=== PATIENT | female | born 1940 | race Caucasian/White ===

== ENCOUNTER 2018-04-03 15:53 | Inpatient (IN) | payer OTHER ==
[~2018-04-03] VITALS: Ht 170.2 cm; Wt 86.2 kg
[2018-04-03 15:53] VITALS: BP 169/102
[~2018-04-03 15:53] MED LIST: ACETAMINOPHEN; ACETAMINOPHEN325 M1 PO; ALBUTEROL2.5 MG/31 IH; ALLEGRA ALLERG180 MG PO; ALLEGRA180 MG PO; B12 INJECTION; BACTRIM 400-801 EACH PO; CHLORDIAZEPOXID25 M1 PO; COMBIVENT IN; EFFEXOR XR37.5 MG PO; FLAGYL500 MG PO; FLOVENT HFA 1110 MCG IH; GLYCOLAX POWDER17 GM PO; ICAPS TABLET1 EACH PO; KENALOG-4040 MG/ML IJ; LACRILUBE OPHTHALMIC; MUCINEX D TABL1 EACH PO; NORCO 5-325 TA1 EACH PO; OYSTER SHELL+D1 EAC1 PO; PHENOBARBITAL30 MG PO; PRAVACHOL40 MG PO; PREMARIN2.5 MG PO; PRENATAL 1 PLU1 EACH PO; PRENATAL FORMU1 EAC3 PO; PRILOSEC40 MG PO; PROZAC 20 MG20 M1 PO; SILVADENE20 GM; SINGULAIR 10 MG10 M1 PO; VENTOLIN HFA INH8 GM IH; VICODIN 5-5001 EACH PO
[2018-04-03] MEDS ORDERED: FOSAMAX 70 MG T70 MG PO (16:15)
[2018-04-03] MEDS ORDERED: NOLVADEX20 MG PO (16:15)
[2018-04-03] MEDS ORDERED: FLONASE 0.05%50 MCG NASAL (16:16)
[2018-04-03 16:42] LABS: ABSOLUTE LYMPHOCYTES 1.4 thou/uL (0.8-5.3); ABSOLUTE NEUTROPHILS 9.9 thou/uL (1.6-8.1); BASOPHILS 0.4 %; EOSINOPHILS 0.3 %; HEMATOCRIT 42.2 % (37.0-47.0); HEMOGLOBIN 13.9 gm/dL (12.0-15.0); LYMPHOCYTES 11.3 %; MCH 30.7 pg (26.0-34.0); MCHC 32.9 g/dL (28.0-37.0); MCV 93.4 fL (80.0-100.0); MONOCYTES 8.3 %; MPV 7.7 fl. (7.2-11.1); NUCLEATED RBCS 0 /100WBC; PLATELET COUNT* 251 thou/uL (150-400); POLYS 79.7 %; RBC 4.52 mil/uL (4.20-5.00); RDW-CV 13.4 % (10.5-14.5); WBC 12.3 thou/uL (4.0-11.0)
[2018-04-03 16:53] LABS: ANION GAP 6 mmol/L (7-16); BUN 15 mg/dL (7-18); CALCIUM 9.3 mg/dL (8.5-10.1); CHLORIDE 102 mmol/L (98-107); CO2 32 mmol/L (21-32); CREATININE 0.9 mg/dL (0.6-1.3); GLUCOSE 103 mg/dL (70-99); POTASSIUM 3.8 mmol/L (3.5-5.1); SODIUM 140 mmol/L (136-145)
[2018-04-03 16:59] LABS: ALBUMIN 3.5 g/dL (3.4-5.0); ALKALINE PHOSPHATASE 60 U/L (46-116); CHOLESTEROL 157 mg/dL (<200); HDL CHOLESTEROL 56 mg/dL (>40); LDL CHOLESTEROL 92 mg/dL (<100); SERUM ASSESSMENT CLEAR; SGOT 22 U/L (15-37); SGPT 25 U/L (30-65); TC:HDL 2.8 Ratio (Not establshd); TOTAL BILIRUBIN 0.3 mg/dL (<0.1-1.0); TOTAL PROTEIN 6.8 g/dL (6.4-8.2); TRIGLYCERIDE 47 mg/dL (<150); TROPONIN-I LEVEL <0.06 ng/mL (<0.06); VLDL 9 mg/dL (<40)
[2018-04-03 17:45] LABS: ESR (SEDRATE) 5 mm/hr (0-30)
[2018-04-03 20:57] VITALS: BP 154/71
[2018-04-03 21:32] VITALS: BP 143/60
[2018-04-03] MEDS ORDERED: PRILOSEC 20 MG20 MG PO (23:10)
[2018-04-03 23:47] LABS: URINE BILIRUBIN NEGATIVE (Negative); URINE BLOOD TRACE (Negative); URINE CLARITY SL CLOUDY; URINE COLOR YELLOW; URINE GLUCOSE-RANDOM NEGATIVE (Negative); URINE KETONES NEGATIVE (Negative); URINE LEUKOCYTES-REFLEX 1+ (Negative); URINE NITRITE-REFLEX NEGATIVE (Negative); URINE PROTEIN NEGATIVE (Negative); URINE SPECIFIC GRAVITY <= 1.005 (1.005-1.030); URINE UROBILINOGEN 0.2 E.U./dl (0.2-1.0)
[2018-04-03 23:54] LABS: SQUAMOUS 0-3 Few /LPF (0-3)
[2018-04-03 23:55] LABS: BACTERIA-REFLEX >30 Many /HPF (None Seen); CASTS None Seen /LPF (None Seen); CRYSTALS None Seen /LPF (None Seen); MUCUS 0-3 Light strn/LPF (None Seen); URINE WBC-REFLEX >25 Many /HPF (0-5); WBC CLUMPS Moderate (None Seen)
[2018-04-04 04:00] VITALS: BP 136/60
[2018-04-04 04:59] LABS: ALBUMIN 3.1 g/dL (3.4-5.0); ALKALINE PHOSPHATASE 53 U/L (46-116); ANION GAP 6 mmol/L (7-16); BUN 16 mg/dL (7-18); CALCIUM 8.6 mg/dL (8.5-10.1); CHLORIDE 104 mmol/L (98-107); CHOLESTEROL 141 mg/dL (<200); CO2 30 mmol/L (21-32); GLUCOSE 111 mg/dL (70-99); HDL CHOLESTEROL 53 mg/dL (>40); LDL CHOLESTEROL 79 mg/dL (<100); SGOT 21 U/L (15-37); SGPT 24 U/L (30-65); SODIUM 140 mmol/L (136-145); TC:HDL 2.7 Ratio (Not establshd); TOTAL BILIRUBIN 0.3 mg/dL (<0.1-1.0); TOTAL PROTEIN 5.9 g/dL (6.4-8.2); TRIGLYCERIDE 45 mg/dL (<150); VLDL 9 mg/dL (<40)
[2018-04-04 05:09] LABS: SERUM ASSESSMENT CLEAR
[2018-04-04 08:00] VITALS: BP 126/60
[2018-04-04 12:00] VITALS: BP 135/74
[2018-04-04 16:00] VITALS: BP 123/65
[2018-04-04 19:50] VITALS: BP 121/62
[2018-04-05] VITALS: BP 119/57
[2018-04-05 02:05] LABS: GLYCOHEMOGLOBIN (HGB A1C) 5.3 % (4.8-5.6)
[2018-04-05 02:05] LABS: GLYCOHEMOGLOBIN (HGB A1C) 5.3 % (4.8-5.6)
[2018-04-05 04:00] VITALS: BP 111/69
[2018-04-05 04:22] LABS: ABSOLUTE BASOPHILS 0.1 thou/uL (0.0-0.2); ABSOLUTE LYMPHOCYTES 2.2 thou/uL (0.8-5.3); ABSOLUTE MONOCYTES 1.2 thou/uL (0.0-1.2); ABSOLUTE NEUTROPHILS 9.1 thou/uL (1.6-8.1); BASOPHILS 0.4 %; EOSINOPHILS 0.3 %; HEMATOCRIT 36.8 % (37.0-47.0); HEMOGLOBIN 12.3 gm/dL (12.0-15.0); LYMPHOCYTES 17.5 %; MCH 31.1 pg (26.0-34.0); MCHC 33.3 g/dL (28.0-37.0); MCV 93.3 fL (80.0-100.0); MONOCYTES 9.6 %; MPV 7.7 fl. (7.2-11.1); NUCLEATED RBCS 0 /100WBC; PLATELET COUNT* 234 thou/uL (150-400); POLYS 72.2 %; RBC 3.94 mil/uL (4.20-5.00); RDW-CV 13.7 % (10.5-14.5); WBC 12.6 thou/uL (4.0-11.0)
[2018-04-05 04:42] LABS: CALCIUM 7.5 mg/dL (8.5-10.1); POTASSIUM 4.1 mmol/L (3.5-5.1)
[2018-04-05 12:00] VITALS: BP 118/64
[2018-04-05 14:20] LABS: BF RBC 228890 /mm3; TOTAL CELL COUNT 1049 /mm3
[2018-04-05 14:22] LABS: CLARITY CLOUDY; COLOR RED; TOTAL VOLUME 24 ml
[2018-04-05 14:27] LABS: BF LYMPHOCYTES 20 %; BF MONOCYTES 20 %; BF POLYS 60 %
[2018-04-05 14:28] LABS: SOURCE LEFT KNEE
--- NOTE | 2018-04-05 15:33 | EKG ---
[place] [address] ELECTROCARDIOGRAM REPORT Name: CYNTHIA FELDMAN Room: [address] ADM IN .R.#: [id number] Admission: 04/03/18 Attend Phys: Jeremie Fernandez MD Discharge: Date of : 42 Report #: [id number] THIS REPORT FOR: //name// [facility] ED Test Date: 2018-04-03 Test Time: 16:49:30 Pat Name: CYNTHIA FELDMAN Department: Room: [facility] Gender: F Spanisher: Dakota MARQUES : 1940 Requested By: Remedios Ghosh Order Number: [id number] MD: Harjit Raman Measurements Intervals [place] Rate: 73 P: -39 ME: 157 QRS: -16 QRSD: 99 T: 42 QT: 410 QTc: 452 Interpretive Statements Sinus rhythm Borderline left axis deviation Compared to ECG 05/20/2013 09:22:56 No significant changes Electronically Signed On 04-05-2018 15:33:26 IP NETWORK ARCHITECT by Harjit Raman [email or web address] <ELECTRONICALLY SIGNED> By: Harjit Raman MD, [facility] 04/05/18 1533 1649 [id number] Harjit Raman MD, [facility] /EPI
[2018-04-05 16:00] VITALS: BP 127/78
[2018-04-05 20:00] VITALS: BP 150/70
[2018-04-06 00:11] VITALS: BP 148/60
[2018-04-06 04:00] VITALS: BP 124/73
[2018-04-06 04:54] LABS: ABSOLUTE EOSINOPHILS 0.1 thou/uL (0.0-0.7); ABSOLUTE LYMPHOCYTES 2.2 thou/uL (0.8-5.3); ABSOLUTE MONOCYTES 1.3 thou/uL (0.0-1.2); ABSOLUTE NEUTROPHILS 8.4 thou/uL (1.6-8.1); BASOPHILS 0.3 %; EOSINOPHILS 0.8 %; HEMATOCRIT 34.7 % (37.0-47.0); HEMOGLOBIN 11.6 gm/dL (12.0-15.0); LYMPHOCYTES 18.3 %; MCH 31.1 pg (26.0-34.0); MCHC 33.4 g/dL (28.0-37.0); MCV 93.2 fL (80.0-100.0); MONOCYTES 10.5 %; MPV 7.8 fl. (7.2-11.1); NUCLEATED RBCS 0 /100WBC; PLATELET COUNT* 226 thou/uL (150-400); POLYS 70.1 %; RBC 3.72 mil/uL (4.20-5.00); RDW-CV 13.4 % (10.5-14.5); WBC 12.1 thou/uL (4.0-11.0)
[2018-04-06 05:05] LABS: ALBUMIN 2.4 g/dL (3.4-5.0); CALCIUM 7.8 mg/dL (8.5-10.1); CREATININE 0.9 mg/dL (0.6-1.3); TOTAL BILIRUBIN 0.2 mg/dL (<0.1-1.0)
[2018-04-06 07:45] VITALS: BP 127/63
[2018-04-06 10:11] LABS: BODY FLUID PROTEIN 3.2 g/dL (())
[2018-04-06 12:00] VITALS: BP 132/76
[2018-04-06 15:30] VITALS: BP 151/86
[2018-04-06 20:24] VITALS: BP 127/49
[2018-04-07 00:04] VITALS: BP 118/62
[2018-04-07 04:00] VITALS: BP 123/53
--- NOTE | 2018-04-07 07:57 | CON ---
[address] [address] CONSULTATION Name: CYNTHIA FELDMAN Room: [address] IN M.R.#: [id number] Admission: 04/03/18 Attend Phys: Jeremie Fernandez MD Discharge: Date of : 42 Report #: [id number] THIS REPORT FOR: //name// CC: Jeremie Menendez DATE OF SERVICE: 04/06/2018 INFECTIOUS DISEASE CONSULTATION ATTENDING PHYSICIAN: Jeremie Fernandez M.D. REASON FOR EVALUATION: Complicated urinary tract infection and possible left knee septic arthritis. HISTORY OF PRESENT ILLNESS: Chart reviewed, the patient examined. This is a 78-year-old with history of breast cancer, who was admitted with a subacute onset of left lower extremity pain. She noted onset in the evening, but she was still able to ambulate; the next morning, she was not, with primarily limited left lower extremity, particularly around the knee. There was pain associated with it. She has had no fevers or chills. Appetite has been good. No pulmonary or gastrointestinal-related complaints. She was evaluated in the Emergency Room to exclude stroke, which seems to be not present. Chest x-ray was otherwise unremarkable. Sed rate was 1. She underwent spinal MRI evaluation that was chronic, without acute changes. Left knee showed moderate joint effusion. She did undergo aspiration, which was essentially a bloody tap, awaiting results. Urine did show marked pyuria. Cultures pending for both the urine and the knee. She was empirically started on ceftriaxone. She is not encephalopathic. ALLERGIES: ASPIRIN AND DOXYCYCLINE. CURRENT MEDICATIONS: Include venlafaxine, montelukast, atorvastatin, enoxaparin, phenobarbital, fluticasone, pantoprazole, ceftriaxone, hydralazine, aspirin, albuterol, p.r.n. analgesics and antiemetics. PAST MEDICAL HISTORY: Breast cancer with bilateral mastectomies and knee replacement on the left side. SOCIAL HISTORY: She smokes a pack per day; last 40 years of tobacco. No illicit drug use. No ethanol. FAMILY HISTORY: Noncontributory. REVIEW OF SYSTEMS: Otherwise, negative 10-point review of systems, with the exception of as noted in the [place] [address] CONSULTATION Name: CYNTHIA FELDMAN Room: [address]#: [id number] Admission: 04/03/18 Attend Phys: Jeremie Fernandez MD Discharge: Date of : 42 Report #: [id number] PHYSICAL EXAMINATION: GENERAL: She is alert, cooperative. She is sitting in the chair. She appears mildly undernourished, pson-sf-idbwjhqn distress. VITAL SIGNS: T-max overnight 100.4, more recently 99; pulse 109; respirations 18 and blood pressure 124/73. SKIN: Warm, dry. No rashes. HEENT: Otherwise, unremarkable. Extraocular muscles intact. There are no oral lesions. NECK: Supple. LUNGS: Somewhat diminished; otherwise, clear breath sounds. HEART: Regular. I do not appreciate a murmur. ABDOMEN: Soft, nontender and nondistended. EXTREMITIES: Left lower extremity shows a longitudinal-oriented anterior well-healed incision with scarring. There is really not a significant amount of superficial inflammation noted. There is somewhat decreased range of motion. I do not appreciate a significant effusion. GENITOURINARY: Deferred. RECTAL: Deferred. LABORATORY DATA: Blood cultures sterile thus far. Left knee, protein 3.2, glucose of 125. Cell count is red and cloudy with a total white count of 1049, red count of 228,890, 60% polys, 20% monocytes and 20% lymphs. Culture is pending. A Gram stain with rare white cells, no organisms seen. Sed rate of 5. MRI of the head showed some chronic changes with atrophy, nothing acute. Lactic acid at 1.6. ASSESSMENT AND PLAN: Complicated urinary tract infection. I suspect it is a complication of whatever triggered this left lower extremity weakness and perhaps knee pain, but that history and evaluation on cell count, perhaps hemarthrosis associated with the artificial knee, I think the evidence for septic joint seems lacking. Continue the ceftriaxone. Await culture results. At this point, I do not think there is anything surgically. We will see how she does with physical therapy. Discussed with Dr. Fernandez. <ELECTRONICALLY SIGNED> By: Jason Nunez MD 04/07/18 0757 1121 [id number] Nunez MD /nt
[2018-04-07 08:07] VITALS: BP 134/78
[2018-04-07 09:09] LABS: ABSOLUTE BASOPHILS 0.1 thou/uL (0.0-0.2); ABSOLUTE EOSINOPHILS 0.2 thou/uL (0.0-0.7); ABSOLUTE MONOCYTES 1.1 thou/uL (0.0-1.2); ABSOLUTE NEUTROPHILS 6.8 thou/uL (1.6-8.1); EOSINOPHILS 1.7 %; HEMATOCRIT 35.4 % (37.0-47.0); HEMOGLOBIN 11.9 gm/dL (12.0-15.0); LYMPHOCYTES 19.8 %; MCH 31.6 pg (26.0-34.0); MCHC 33.5 g/dL (28.0-37.0); MCV 94.4 fL (80.0-100.0); MONOCYTES 10.4 %; MPV 8.4 fl. (7.2-11.1); NUCLEATED RBCS 0 /100WBC; PLATELET COUNT* 242 thou/uL (150-400); POLYS 67.1 %; RBC 3.75 mil/uL (4.20-5.00); RDW-CV 13.6 % (10.5-14.5); WBC 10.2 thou/uL (4.0-11.0)
[2018-04-07 09:18] LABS: ALBUMIN 2.5 g/dL (3.4-5.0); CALCIUM 7.9 mg/dL (8.5-10.1); CREATININE 0.9 mg/dL (0.6-1.3); POTASSIUM 4.6 mmol/L (3.5-5.1); TOTAL BILIRUBIN 0.2 mg/dL (<0.1-1.0); TOTAL PROTEIN 5.2 g/dL (6.4-8.2)
[2018-04-07 14:02] VITALS: BP 134/78
[2018-04-07] MEDS ORDERED: CEFUROXIME500 MG PO (14:05)
[2018-04-07] MEDS ORDERED: ASPIR 8181 MG PO (14:06)
[2018-04-08 07:45] LABS: SOURCE KNEE JOINT
--- NOTE | 2018-04-08 22:31 | CON ---
[address] [address] CONSULTATION Name: CYNTHIA FELDMAN Room: [address] IN ..#: [id number] Admission: 04/03/18 Attend Phys: Jeremie Fernandez MD Discharge: 04/07/18 Date of : 42 Report #: [id number] THIS REPORT FOR: //name// CC: Jeremie Menendez DATE OF SERVICE: 04/05/2018 CHIEF COMPLAINT: Left lower extremity weakness. HISTORY OF PRESENT ILLNESS: The patient is a 78-year-old lady with a medical history of left lower extremity weakness, had difficulty bearing weight and had instability. The patient is uncertain if she had a fall. Did have previous knee replacement done. She denies any significant trauma. The patient states there is no pain in the knee; however, it is weak on the left side that last for most of the day, can get to a 2/10 in her hip and low back. The patient has tried walker and cane without significant improvement. Previous history of stroke as well as UTI in the past. We are consulted for evaluation of her left knee effusion. MEDICAL HISTORY: Prior stroke, fall, left wrist radius fracture in the past. Right patellar fracture in the past. Knee replacement on the left. ALLERGIES: DOXYCYCLINE AND ASPIRIN. MEDICATIONS: Listed in H and P. PAST SURGICAL HISTORY: Double mastectomy, knee replacement on the left, plate and screws in the right. FAMILY HISTORY: Noncontributory. SOCIAL HISTORY: Tobacco use, everyday smoker, 1 pack for over 40 years. Denies any alcohol or illicit drugs. REVIEW OF SYSTEMS: A 12-system review of systems is evaluated and negative except for pertinent positives in the HPI. IMAGING STUDIES: CT of the head with stroke protocol, she has atrophic changes. No acute process. X-ray of the chest negative. X-ray of the left knee shows prior total knee without evidence of loosening. Mild effusion. No evidence of acute process. LABORATORY STUDIES: Show white count of 12.6, sed rate of 1. Urinalysis reveals positive leukocyte esterase, positive red blood cells, [place] [address] CONSULTATION Name: CYNTHIA FELDMAN Adrien Room: [address]#: [id number] Admission: 04/03/18 Attend Phys: Jeremie Fernandez MD Discharge: 04/07/18 Date of : 42 Report #: [id number] greater than 25 white blood cells with moderate clumps. Urine bacteria greater than 30. Glucose 103, potassium 3.8, chloride 102. Sodium 140. PHYSICAL EXAMINATION: VITAL SIGNS: Temperature 99.3, pulse 99, respirations 20. GENERAL: Well-developed, well-nourished, pleasant 78-year-old female in no distress. HEENT: Normocephalic, atraumatic. Pupils equal, round and reactive. Nose clear with moist mucous membranes. Mouth patent. Moist mucous membranes. No evidence of lesions. NECK: Supple, no JVD, no bruit. CARDIOVASCULAR: Regular rate and rhythm. Capillary refill normal. Pulses normal bilaterally. LUNGS: Clear to auscultation with no wheezes or rales. No crackles. ABDOMEN: Soft, positive bowel sounds, no masses. EXTREMITIES: No clubbing or cyanosis. Peripheral pulses normal. SKIN: Normal turgor and cap refill. PSYCHIATRIC: Appropriate mood and affect. NEUROLOGICAL: Moving all extremities, full range of motion, no speech issues. No facial droop. MUSCULOSKELETAL: The patient's left extremity is evaluated which does show flexion and extension of the knee with full range of motion. Mild effusion is noted in the left knee; however, no evidence of erythema, infection or cellulitis. Calves are soft and nontender. The patient has 4/5 strength with movement of the left lower extremity. ASSESSMENT: 1. Left knee effusion. 2. Possible urinary tract infection. 3. History of stroke. 4. History of left total knee. PLAN: At this time, the patient is discussed and verbally consented for aspiration of her knee. She elected to proceed. It is sterilely prepped with chlorhexidine. An 18-gauge needle is then introduced through the lateral side to aspirate the knee. Approximately, 50 mL of dark red blood was removed from the knee without evidence of purulence, no evidence of infection in the aspirate. This was sent for culture and Gram stain in sterile technique. This was then dressed with a compression bandage. The patient is discussed to continue range of motion, physical therapy as well as compressive wrap to minimize any excess bleeding within the knee, is encouraged to continue full range of motion and try to resume strength and walking as able with other workups pending. At this time, no signs of infection. We will await cultures. However, at this time, nonsurgical intervention is discussed with the patient in detail. The patient is comfortable with this and verbalized understanding. Questions were answered. [address] [address] CONSULTATION Name: CYNTHIA FELDMAN Room: [address] IN M.R.#: [id number] Admission: 04/03/18 Attend Phys: Jeremie Fernandez MD Discharge: 04/07/18 Date of : 42 Report #: [id number] Thank you very much for this consultation. <ELECTRONICALLY SIGNED> By: Riki Cooley II, DO 04/08/18 2231 0852 2014iRki Cooley II, DO /nt
--- NOTE | 2018-04-10 10:58 | CON ---
[address] [address] CONSULTATION Name: CYNTHIA FELDMAN Adrien Room: [address] IN .R.#: [id number] Admission: 04/03/18 Attend Phys: Jeremie Fernandez MD Discharge: 04/07/18 Date of : 42 Report #: [id number] THIS REPORT FOR: //name// CC: Jeremie Menendez DATE OF SERVICE: 04/04/2018 HISTORY OF PRESENT ILLNESS: This is a 78-year-old female patient who was evaluated by me for the left lower extremity weakness. The patient's symptom had started the night before admission. It persisted throughout the day. They were about the same. She does not know if it was an acute onset, but it is going on for the last few days only and she continued to be weak in the left side. REVIEW OF SYSTEMS: Indicates that she had weakness on the left side. She had a prior history of head trauma. She does indicate that she had some back pain associated with this weakness on the left side. That history is difficult to interpret. She has trouble with sacroiliac joint in the past, but that was on the right side. She had a history of breast cancer in the past. When she came to Emergency Room, she did have CT angiogram. That indicates fairly symmetrical perfusion on both sides and there was no evidence of any stroke. She does not think there is any contraindication for the MRI. She does have a knee replaced and some metal in there. She had MRIs in the past, but she does not know when the MRIs were. She is on tamoxifen. Fourteen-point review of systems was otherwise noncontributory. PAST MEDICAL HISTORY: Positive for breast cancer and she is on tamoxifen. FAMILY HISTORY: Negative for any early age stroke. SOCIAL HISTORY: She has a history of smoking, but does not use alcohol on a regular basis. PHYSICAL EXAMINATION: Indicates she is alert, responsive. Her speech, concentration, fund of knowledge and memory is at her baseline. Cranial nerve examination 212 is unremarkable. She has a pretty good strength in both upper extremities. In the lower extremities, strength is somewhat diminished on both sides, but is markedly diminished on the left side. When I checked the position sense, she says it takes her longer to guess the position sense on the left side as compared to the right side. She says touch feel altered. Reflexes are somewhat diminished on both sides and difficult to elicit in the legs. She does have a reasonably good vision and hearing. Cardiac examinations appear noncontributory. No respiratory difficulty was noticed. Blood pressure is 126/60, respiration is 20, pulse is 78, [place] 98.8[place] [address] CONSULTATION Name: GASTONCYNTHIA Adrien Room: [address] IN .#: [id number] Admission: 04/03/18 Attend Phys: Jeremie Fernandez MD Discharge: 04/07/18 Date of : 42 Report #: [id number] LABORATORY DATA: White count is 12.3. IMPRESSION: This patient is complaining of left-sided weakness. It is pretty much in the left lower extremity. She has a prior history of breast cancer. She is on tamoxifen, which can predispose her for stroke. She has a history of breast cancer and that can predispose her for metastasis to the spine or some other spine pathology. I tried to get a level in this patient to see if there is any dermatomal level present for sensory loss and I cannot get that and therefore, we will end up doing MRI of the lumbar and thoracic spine to rule that possibility out. PLAN: I discussed with the patient that she will need a lot of workup. We need to exclude the possibility of anterior cerebral artery stroke. We need to exclude the possibility of any metastasis to the spine. Further workup will depend upon that workup. She does have metal in her body. I have asked the MRI people to make sure there is no contraindication for that. I did discuss with her when she has metal in her body and especially an unknown metal, complication can occur. Even if catastrophic complication does not occur, the metal can get heated up and can cause its own side effects. She understands all those and she wants to proceed with MRI. We will await that workup and go from there. More than 50 minutes of time was spent taking care of this patient today and majority of that time was spent counseling the patient and coordinating her care. <ELECTRONICALLY SIGNED> By: Jaime Ellis MD 04/10/18 1058 1131 [id number] Ellis MD /edwin
== END 2018-04-07 17:03 | DRG 690 ==
LOC: M.ERS 15:53 → M.2W 20:08 → M.TBA-ER 20:08 → M.2W 20:29
PROVIDERS: Emergency Medicine Emergency Medical Services; Nurse Practitioner Family; Orthopaedic Surgery; ADMIT Internal Medicine
PROC: 0S9D3ZZ Drainage of Left Knee Joint, Percutaneous Approach (ICD-10-PCS; principal; 2018-04-05)
DX: N39.0 Urinary tract infection, site not specified (principal); M25.062 Hemarthrosis, left knee; E44.1 Mild protein-calorie malnutrition; R65.10 Systemic inflammatory response syndrome (SIRS) of non-infectious origin without acute organ dysfunction; M25.462 Effusion, left knee; F41.9 Anxiety disorder, unspecified; M17.12 Unilateral primary osteoarthritis, left knee; M48.061 Spinal stenosis, lumbar region without neurogenic claudication; Z96.652 Presence of left artificial knee joint; F17.210 Nicotine dependence, cigarettes, uncomplicated; Z85.3 Personal history of malignant neoplasm of breast; Z86.73 Personal history of transient ischemic attack (TIA), and cerebral infarction without residual deficits; Z90.710 Acquired absence of both cervix and uterus; Z90.13 Acquired absence of bilateral breasts and nipples; Z87.81 Personal history of (healed) traumatic fracture; Z79.82 Long term (current) use of aspirin; Z79.899 Other long term (current) drug therapy; Z88.6 Allergy status to analgesic agent; Z88.8 Allergy status to other drugs, medicaments and biological substances; Z23 Encounter for immunization; Z68.29 Body mass index [BMI] 29.0-29.9, adult

== ENCOUNTER 2019-04-17 14:12 | Inpatient (IN) | payer OTHER ==
[~2019-04-17] VITALS: Ht 170.2 cm; Wt 79.8 kg
[~2019-04-17 14:12] MED LIST changes: +ASPIR 8181 MG PO; +CEFUROXIME500 MG PO; +FLONASE 0.05%50 MCG NASAL; +FOSAMAX 70 MG T70 MG PO; +NOLVADEX20 MG PO; +PRILOSEC 20 MG20 MG PO
[2019-04-17 14:19] VITALS: BP 160/82
[2019-04-17 15:34] LABS: ABSOLUTE BASOPHILS 0.1 thou/uL (0.0-0.2); ABSOLUTE LYMPHOCYTES 1.2 thou/uL (0.8-5.3); ABSOLUTE MONOCYTES 0.8 thou/uL (0.0-1.2); ABSOLUTE NEUTROPHILS 8.3 thou/uL (1.6-8.1); BASOPHILS 0.5 %; EOSINOPHILS 0.4 %; HEMATOCRIT 39.9 % (37.0-47.0); HEMOGLOBIN 13.7 gm/dL (12.0-15.0); LYMPHOCYTES 11.9 %; MCH 31.2 pg (26.0-34.0); MCHC 34.3 g/dL (28.0-37.0); MONOCYTES 7.8 %; MPV 7.2 fl. (7.2-11.1); NUCLEATED RBCS 0 /100WBC; PLATELET COUNT* 318 thou/uL (150-400); POLYS 79.4 %; RBC 4.39 mil/uL (4.20-5.00); RDW-CV 13.7 % (10.5-14.5); WBC 10.5 thou/uL (4.0-11.0)
[2019-04-17 15:41] LABS: CALCIUM 9.6 mg/dL (8.5-10.1); CREATININE 0.8 mg/dL (0.6-1.3); POTASSIUM 3.7 mmol/L (3.5-5.1)
[2019-04-17 15:44] LABS: APTT 25.7 Seconds (25.0-31.3); PROTIME 10.3 Seconds (9.20-11.50)
[2019-04-17 15:46] LABS: ALBUMIN 3.9 g/dL (3.4-5.0); TOTAL BILIRUBIN 0.2 mg/dL (<0.1-1.0); TOTAL PROTEIN 7.4 g/dL (6.4-8.2)
[2019-04-17 16:15] VITALS: BP 173/82
[2019-04-17 16:25] VITALS: BP 167/78
[2019-04-17 20:04] VITALS: BP 128/59
--- NOTE | 2019-04-18 15:37 | EKG ---
[place] [address] ELECTROCARDIOGRAM REPORT Name: CYNTHIA FELDMAN Room: [address] ADM IN M.R.#: [id number] Admission: 04/17/19 Attend Phys: Andrew Limon MD Discharge: Date of : 42 Report #: [id number] THIS REPORT FOR: //name// [facility] ED Test Date: 2019-04-17 Test Time: 15:38:54 Pat Name: CYNTHIA FELDMAN Department: Room: [facility] Gender: F District Ranger: [facility] : 1940 Requested By: Daniel Portillo Order Number: [id number] MD: Harjit Raman Measurements Intervals [place] Rate: 74 P: 82 NC: 153 QRS: -26 QRSD: 105 T: 36 QT: 412 QTc: 457 Interpretive Statements Sinus rhythm Borderline left axis deviation Compared to ECG 04/03/2018 16:49:30 No significant changes Electronically Signed On 04-18-2019 15:37:28 RETAIL RECEIVING CLERK by Harjit Raman [email or web address] <ELECTRONICALLY SIGNED> By: Harjit Raman MD, [facility] 04/18/19 1537 1538 1538 Harjit Raman MD, FAC /EPI
[2019-04-18 19:30] VITALS: BP 123/57
[2019-04-19] VITALS: BP 126/51
[2019-04-19 04:00] VITALS: BP 107/46
[2019-04-19 04:56] LABS: HEMATOCRIT 29.1 % (37.0-47.0)
[2019-04-19 04:57] LABS: HEMOGLOBIN 9.7 gm/dL (12.0-15.0)
[2019-04-19 04:58] LABS: ABSOLUTE LYMPHOCYTES 2.2 thou/uL (0.8-5.3); ABSOLUTE MONOCYTES 1.6 thou/uL (0.0-1.2); ABSOLUTE NEUTROPHILS 11.2 thou/uL (1.6-8.1); BASOPHILS 0.3 %; EOSINOPHILS 0.3 %; HEMATOCRIT 28.7 % (37.0-47.0); HEMOGLOBIN 9.8 gm/dL (12.0-15.0); LYMPHOCYTES 14.8 %; MCHC 34.2 g/dL (28.0-37.0); MCV 90.9 fL (80.0-100.0); MONOCYTES 10.4 %; MPV 7.8 fl. (7.2-11.1); NUCLEATED RBCS 0 /100WBC; POLYS 74.2 %; RBC 3.15 mil/uL (4.20-5.00); RDW-CV 13.6 % (10.5-14.5); WBC 15.1 thou/uL (4.0-11.0)
[2019-04-19 05:07] LABS: CALCIUM 7.7 mg/dL (8.5-10.1); CREATININE 0.9 mg/dL (0.6-1.3); POTASSIUM 3.5 mmol/L (3.5-5.1)
[2019-04-19 05:10] LABS: PLATELET COUNT* 239 thou/uL (150-400)
[2019-04-19 08:15] VITALS: BP 128/64
[2019-04-19 15:36] VITALS: BP 174/74
[2019-04-19 20:00] VITALS: BP 145/56
[2019-04-20 04:05] LABS: ABSOLUTE EOSINOPHILS 0.1 thou/uL (0.0-0.7); ABSOLUTE MONOCYTES 1.4 thou/uL (0.0-1.2); ABSOLUTE NEUTROPHILS 11.5 thou/uL (1.6-8.1); BASOPHILS 0.2 %; EOSINOPHILS 0.6 %; HEMOGLOBIN 8.3 gm/dL (12.0-15.0); MCH 31.4 pg (26.0-34.0); MCHC 34.7 g/dL (28.0-37.0); MCV 90.4 fL (80.0-100.0); MONOCYTES 9.6 %; MPV 7.3 fl. (7.2-11.1); NUCLEATED RBCS 0 /100WBC; PLATELET COUNT* 193 thou/uL (150-400); POLYS 76.6 %; RBC 2.66 mil/uL (4.20-5.00); RDW-CV 13.7 % (10.5-14.5)
[2019-04-20 04:29] LABS: CALCIUM 7.7 mg/dL (8.5-10.1); CREATININE 0.7 mg/dL (0.6-1.3); POTASSIUM 3.3 mmol/L (3.5-5.1)
[2019-04-20 08:30] VITALS: BP 104/74
[2019-04-20 09:32] LABS: URINE BILIRUBIN NEGATIVE (Negative); URINE BLOOD 2+ (Negative); URINE CLARITY CLEAR; URINE COLOR YELLOW; URINE GLUCOSE-RANDOM NEGATIVE (Negative); URINE KETONES NEGATIVE (Negative); URINE LEUKOCYTES-REFLEX TRACE (Negative); URINE PROTEIN 1+ (Negative); URINE SPECIFIC GRAVITY >= 1.030 (1.005-1.030); URINE UROBILINOGEN 0.2 E.U./dl (0.2-1.0)
[2019-04-20 09:44] LABS: SQUAMOUS 0-3 Few /LPF (0-3); URINE NITRITE-REFLEX POSITIVE (Negative); URINE RBC 0-2 Rare /HPF (0-2); URINE WBC-REFLEX 6-15 Few /HPF (0-5)
[2019-04-20 09:45] LABS: CASTS None Seen /LPF (None Seen); CRYSTALS None Seen /LPF (None Seen)
--- NOTE | 2019-04-20 11:25 | CON ---
[address] [address] CONSULTATION Name: CYNTHIA FELDMAN Room: [address] IN .R.#: [id number] Admission: 04/17/19 Attend Phys: Andrew Limon MD Discharge: Date of : 42 Report #: [id number] THIS REPORT FOR: //name// CC: Andrew Limon DATE OF SERVICE: 04/20/2019 INFECTIOUS DISEASE CONSULTATION ATTENDING PHYSICIAN: Andrew Limon MD REASON FOR EVALUATION: Postoperative fevers and left hip fracture. HISTORY OF PRESENT ILLNESS: Chart reviewed, the patient examined. This is a 79-year-old woman, who has an underlying lung disease, requiring oxygenation at night, who sustained injury to her left hip with hip fracture, underwent hemiarthroplasty. Postop course has been complicated by some fevers. She has a moderate amount of pain, although it is absent with nonmovement. She is maintained on supplemental oxygen, although sats are in the odc-mg-ampgf 90s. Denies cough and neck complaints. No abdominal-related complaints. Urinalysis did show some moderate pyuria. Had received perioperative cefazolin. Hemodynamics have been only mildly labile. She is not encephalopathic. ALLERGIES: DOXYCYCLINE. CURRENT MEDICINES: Include apixaban, morphine as needed, oxycodone, venlafaxine, montelukast, phenobarbital, atorvastatin, albuterol, p.r.n. antiemetics. PAST MEDICAL HISTORY: Previous breast cancer with double mastectomy, osteoarthritis, hyperlipidemia, asthma. SOCIAL HISTORY: Smokes a pack a day. No ethanol. No illicit drug use. FAMILY HISTORY: Noncontributory. REVIEW OF SYSTEMS: Otherwise, unremarkable 10-point review of systems. PHYSICAL EXAMINATION: GENERAL: She is alert, cooperative, appropriate, in mild distress. HEENT: Has nasal cannula oxygen in place. Normocephalic. Extraocular muscles intact. NECK: Supple. VITAL SIGNS: Temperature 100 with a T-max overnight of 101.6, pulse 111, respirations 16, blood pressure 145/56[place] [address] CONSULTATION Name: GASTONCYNTHIA Adrien Room: [address]#: [id number] Admission: 04/17/19 Attend Phys: Andrew Limon MD Discharge: Date of : 42 Report #: [id number] SKIN: Warm, dry, no rashes. LUNGS: Few scattered crackles at the bases. HEART: Regular, tachycardic. I do not appreciate murmur. ABDOMEN: Soft, nontender, nondistended. EXTREMITIES: She has got a wedge in place ____ between her legs. GENITOURINARY AND RECTAL: Deferred. LABORATORY DATA: Urinalysis 6-15 white cells, 10-30 bacteria. Chest x-ray: Mild left basilar atelectasis or infiltrate. CBC: White count of 15.0, H and H 8.3 and 24, platelets of 193. Electrolytes: Sodium 139, potassium 3.3, chloride 101, bicarb is 28, anion gap of 6, BUN and creatinine 10 and 0.7. MRSA screen was negative. ASSESSMENT: Postoperative fevers, unclear etiology. I am certainly concerned about typical sites urinary tract and perhaps early pneumonitis. At this point, she is not overtly toxic. It is reasonable to initiate empiric antimicrobial therapy. We will await culture results. I will go ahead and check blood cultures, influenza and I will check liver functions to exclude a drug-induced hepatitis status. We will see how she does clinically over the next 24-48 hours. <ELECTRONICALLY SIGNED> By: Jason Nunez MD 04/20/19 1125 0958 [id number] Nunez MD /nt
[2019-04-20 11:44] LABS: ALBUMIN 2.1 g/dL (3.4-5.0); DIRECT BILIRUBIN 0.1 mg/dL (<0.1-0.3); TOTAL BILIRUBIN 0.3 mg/dL (<0.1-1.0); TOTAL PROTEIN 4.8 g/dL (6.4-8.2)
[2019-04-20 13:42] LABS: INFLUENZA A ANTIGEN Negative (Negative); INFLUENZA B ANTIGEN Negative (Negative)
[2019-04-20 16:00] VITALS: BP 166/48
[2019-04-20 20:00] VITALS: BP 126/51
[2019-04-21 05:17] LABS: ABSOLUTE EOSINOPHILS 0.2 thou/uL (0.0-0.7); ABSOLUTE LYMPHOCYTES 1.8 thou/uL (0.8-5.3); ABSOLUTE MONOCYTES 1.2 thou/uL (0.0-1.2); ABSOLUTE NEUTROPHILS 9.7 thou/uL (1.6-8.1); BASOPHILS 0.3 %; EOSINOPHILS 1.4 %; HEMATOCRIT 22.7 % (37.0-47.0); HEMOGLOBIN 7.9 gm/dL (12.0-15.0); LYMPHOCYTES 13.9 %; MCH 31.4 pg (26.0-34.0); MCHC 34.6 g/dL (28.0-37.0); MCV 90.6 fL (80.0-100.0); MONOCYTES 9.2 %; MPV 7.6 fl. (7.2-11.1); NUCLEATED RBCS 0 /100WBC; PLATELET COUNT* 203 thou/uL (150-400); POLYS 75.2 %; RBC 2.51 mil/uL (4.20-5.00); RDW-CV 13.5 % (10.5-14.5); WBC 12.8 thou/uL (4.0-11.0)
[2019-04-21 05:30] LABS: ALBUMIN 1.9 g/dL (3.4-5.0); CALCIUM 8.2 mg/dL (8.5-10.1); CREATININE 0.8 mg/dL (0.6-1.3); POTASSIUM 4.3 mmol/L (3.5-5.1); TOTAL BILIRUBIN 0.3 mg/dL (<0.1-1.0); TOTAL PROTEIN 5.2 g/dL (6.4-8.2)
[2019-04-21 05:42] LABS: PREALBUMIN 7.6 mg/dL (18.0-35.7)
[2019-04-21 09:20] VITALS: BP 113/59
[2019-04-21] MEDS ORDERED: CHLORDIAZEPOXID25 M1 PO ×2 (14:41→15:02)
[2019-04-21 21:07] VITALS: BP 135/49
[2019-04-22 07:30] VITALS: BP 124/59
[2019-04-22 20:40] VITALS: BP 126/58
[2019-04-23 07:25] VITALS: BP 120/53
[2019-04-23 16:00] VITALS: BP 117/57
[2019-04-23 19:30] VITALS: BP 114/59
[2019-04-24] VITALS: BP 119/50
[2019-04-24 08:45] VITALS: BP 121/54
[2019-04-24 16:00] VITALS: BP 135/58
[2019-04-24 20:00] VITALS: BP 112/44
[2019-04-24 23:29] VITALS: BP 115/50
[2019-04-25 04:00] VITALS: BP 119/61
[2019-04-25 04:04] LABS: CALCIUM 8.3 mg/dL (8.5-10.1); CREATININE 0.7 mg/dL (0.6-1.3); MAGNESIUM 2.1 mg/dL (1.8-2.4); POTASSIUM 4.2 mmol/L (3.5-5.1)
[2019-04-25 04:06] LABS: HEMATOCRIT 23.6 % (37.0-47.0); HEMOGLOBIN 8.1 gm/dL (12.0-15.0); MCH 31.2 pg (26.0-34.0); MCHC 34.3 g/dL (28.0-37.0); RBC 2.6 mil/uL (4.20-5.00); RDW-CV 13.9 % (10.5-14.5); WBC 11.3 thou/uL (4.0-11.0)
[2019-04-25 09:20] VITALS: BP 105/52
[2019-04-25 16:48] VITALS: BP 130/53
[2019-04-25 20:31] VITALS: BP 122/56
[2019-04-26 08:02] VITALS: BP 111/51
[2019-04-26] MEDS ORDERED: IBUPROFEN 600600 M1 PO (08:06)
[2019-04-26] MEDS ORDERED: ELIQUIS5 MG PO (08:06)
[2019-04-26] MEDS ORDERED: MUCINEX600 MG PO (08:06)
[2019-04-26] MEDS ORDERED: PAIN RELIEVER500 MG PO (08:06)
[2019-04-26] MEDS ORDERED: HYDROCODON-ACE1 EAC7 PO (08:06)
[2019-04-26] MEDS ORDERED: LIDOPATCH1 EACH TOP (08:06)
[2019-04-26 12:10] VITALS: BP 111/51
[2019-04-26] MEDS ORDERED: MEROPENEM 1 GM V1 GM IVPB (14:15)
--- NOTE | 2019-04-26 15:01 | OP ---
[facility] [place] [address] OPERATIVE REPORT Name: CYNTHIA FELDMAN Room: [address] IN M.R.#: [id number] Admission: 04/17/19 Attend Phys: Andrew Limon MD Discharge: Date of : 44 Report #: [id number] THIS REPORT FOR: //name// CC: Andrew Limon PREOPERATIVE DIAGNOSIS: Left femoral neck fracture. POSTOPERATIVE DIAGNOSIS: Left femoral neck fracture. PROCEDURE: Left angel-hip arthroplasty. SURGEON: Andrew Ramon DO ASSISTANTS: 1. Yg Nice DO 2. Felice Weber DO ANESTHESIA: General. ANTIBIOTICS: Ancef IV. FLUIDS: 1600 mL lactated Ringer's. URINARY OUTPUT: 400 mL. ESTIMATED BLOOD LOSS: 250 mL. COMPLICATIONS: None. SPECIMENS: None. DRAINS: None. CONDITION: The patient is stable to PACU. IMPLANTS: [employer] Echo fracture stem size 13 cemented with collar, standard offset, standard length, size 15 centralizer 49 mm unipolar with standard neck offset [employer] cement. INDICATIONS FOR PROCEDURE: The patient sustained a ground level fall, admitted to [facility] with a left hip fracture. We were consulted, went over with the patient and her daughter in detail the diagnosis, treatment options and plan of surgery with reasoning and risks and complications in detail, see consultation note for full details of our discussion had. They gave consent to proceed. [address] [address] OPERATIVE REPORT Name: CYNTHIA FELDMAN Room: [address] IN M.R.#: [id number] Admission: 04/17/19 Attend Phys: Andrew Limon MD Discharge: Date of : 42 Report #: [id number] DESCRIPTION OF PROCEDURE: I marked the left lower extremity in the presence of the operative team members. Everyone agreed this was correct. She was taken back to the operative suite where a briefing was performed indicating correct patient, procedure, site, antibiotics and that implants were present and sterile. All team members agreed. General anesthetic was administered. She was transferred over to the operative table, placed into the right lateral decubitus position, well-padded and secured. The left lower extremity was sterilely prepped and draped in standard fashion. Timeout was performed indicating correct patient, procedure, site, antibiotics and that implants were present and sterile. All team members agreed. Anterolateral approach was utilized. Scalpel through skin, full thickness down to the IT band and fascia secondary scalpel and scissors used to incise through this. Charnley retractor placed deep. Electrocautery used to take down the gluteus minimus and medius leaving some of this attached to the tip. The capsule was incised with a secondary layer with a T capsulotomy. We visualized the neck, used our saw to clean up the neck cut one fingerbreadth above the lesser, removed the head, neck and sized as a 49 trial, 49 unipolar had good suction fit within the acetabulum. We then began prepping our femur. Box osteotome and Rat-tail rasp lateralizer and then broaching to a size 15 to account for appropriate mantle. We therefore threw the final 13 onto the back table after implant timeout. We prepped the canal in standard fashion for cementing technique, placed a cement restrictor distally in the appropriate location as measured based on the stem. We then mixed cement first the standard technique on the backtable, placed cement into the canal of the femur. We then inserted our stem, removed excess cement and held our stem in its appropriate position in regards to seating along the calcar in the version. Once the cement had fully hardened, we then began trialing. We trialed -3, leg lengths were short. We then placed a standard; leg lengths were equal and taken through full range of motion. There is no instability found. We therefore dislocated the hip. Final unipolar head and standard neck offset were thrown onto the back table. This was engaged on the Alva taper with mallet. We then reduced the hip. All final components were placed in place at this time, we took the range of motion, it was stable throughout all arcs with no instability found. Thoroughly irrigated with normal saline. Capsules closed with #1 Vicryl [id number] interrupted. Gluteal structures were reapproximated with through bone sutures veiacn-tv-vosif interrupted #5 Ti-Cron oversewn with #1 Vicryl. IT band and fascia were reapproximated with #1 Vicryl and #1 Stratafix running. Subcutaneous and skin were closed with 0 Vicryl [id number] interrupted for deep layer, 2-0 Monocryl buried deep subcutaneous and todd for skin and a Prevena incisional VAC dressings. Debriefing was performed where we confirmed procedure, blood loss and that all counts were correct and final. All team members agreed. She was transferred off of the operative table back onto her bed. Leg lengths were excellent. Placed into an abductor pillow, extubated and taken to PACU in stable. POSTOPERATIVE COURSE AND EVALUATION: I spoke with her daughter, addressed any question, she had stated satisfaction. The patient [place] [address] OPERATIVE REPORT Name: CYNTHIA FELDMAN Room: [address] IN [facility]#: [id number] Admission: 04/17/19 Attend Phys: Andrew Limon MD Discharge: Date of : 44 Report #: [id number] stable vital signs, pain controlled, neurovascularly intact. PACU films showed stable implant in good position and alignment. No fractures or dislocation. She will be weightbear as tolerated. PT, OT, anterolateral hip precautions, DVT prophylaxis will be both pharmacological and mechanical. Case management to help with discharge planning. Encourage nursing, medical staff, the patient and her family to call anytime with questions or concerns. <ELECTRONICALLY SIGNED> By: Andrew Ramon DO 04/26/19 1501 0711 [id number] Ramon DO /nt
== END 2019-04-26 18:12 | DRG 469 ==
LOC: M.ERS 14:12 → M.TBA-ER 15:28 → M.ORTHSURG 15:28
PROVIDERS: Internal Medicine; Nurse Practitioner Family; Orthopaedic Surgery; Specialist; ADMIT Internal Medicine
PROC: 0SRS0J9 Replacement of Left Hip Joint, Femoral Surface with Synthetic Substitute, Cemented, Open Approach (ICD-10-PCS; principal; 2019-04-17)
PROC: 05HY33Z Insertion of Infusion Device into Upper Vein, Percutaneous Approach (ICD-10-PCS; 2019-04-26)
DX: M80.852A Other osteoporosis with current pathological fracture, left femur, initial encounter for fracture (principal); J96.00 Acute respiratory failure, unspecified whether with hypoxia or hypercapnia; A41.9 Sepsis, unspecified organism; J15.6 Pneumonia due to other Gram-negative bacteria; J98.11 Atelectasis; N39.0 Urinary tract infection, site not specified; S72.002A Fracture of unspecified part of neck of left femur, initial encounter for closed fracture; M19.90 Unspecified osteoarthritis, unspecified site; J45.909 Unspecified asthma, uncomplicated; F17.201 Nicotine dependence, unspecified, in remission; Z96.652 Presence of left artificial knee joint; F32.9 Major depressive disorder, single episode, unspecified; E78.5 Hyperlipidemia, unspecified; E55.9 Vitamin D deficiency, unspecified; K59.00 Constipation, unspecified; Z90.13 Acquired absence of bilateral breasts and nipples; Z88.8 Allergy status to other drugs, medicaments and biological substances; Z85.3 Personal history of malignant neoplasm of breast; B96.5 Pseudomonas (aeruginosa) (mallei) (pseudomallei) as the cause of diseases classified elsewhere; W07.XXXA Fall from chair, initial encounter; Y93.89 Activity, other specified; Y92.89 Other specified places as the place of occurrence of the external cause; Y99.8 Other external cause status

== ENCOUNTER 2019-05-04 23:21 | Inpatient (IN) | payer OTHER ==
[~2019-05-04] VITALS: Ht 170.2 cm; Wt 83.3 kg
[~2019-05-04 23:21] MED LIST changes: +ELIQUIS5 MG PO; +HYDROCODON-ACE1 EAC7 PO; +IBUPROFEN 600600 M1 PO; +LIDOPATCH1 EACH TOP; +MEROPENEM 1 GM V1 GM IVPB; +MUCINEX600 MG PO; +PAIN RELIEVER500 MG PO
[2019-05-04 23:24] VITALS: BP 109/43
[2019-05-04 23:44] LABS: HEMATOCRIT 29.2 % (37.0-47.0); MCH 30.3 pg (26.0-34.0); MCHC 34.2 g/dL (28.0-37.0); MCV 88.5 fL (80.0-100.0); MPV 6.7 fl. (7.2-11.1); NUCLEATED RBCS 0 /100WBC; PLATELET COUNT* 592 thou/uL (150-400); RDW-CV 14.4 % (10.5-14.5); WBC 17.8 thou/uL (4.0-11.0)
[2019-05-04 23:52] LABS: INR 1.1; PROTIME 10.8 Seconds (9.20-11.50)
[2019-05-04 23:55] LABS: CALCIUM 7.9 mg/dL (8.5-10.1)
[2019-05-05 00:04] LABS: ALBUMIN 2.6 g/dL (3.4-5.0); TOTAL BILIRUBIN 0.3 mg/dL (<0.1-1.0); TOTAL PROTEIN 6.4 g/dL (6.4-8.2)
[2019-05-05 01:05] LABS: INFLUENZA A ANTIGEN Negative (Negative); INFLUENZA B ANTIGEN Negative (Negative)
[2019-05-05 01:08] LABS: ABSOLUTE LYMPHOCYTES 1.4 thou/uL (0.8-5.3); ABSOLUTE MONOCYTES 1.1 thou/uL (0.0-1.2); ABSOLUTE NEUTROPHILS 15.3 thou/uL (1.6-8.1); ATYPICAL LYMPHS 1 %; PLATELET ESTIMATE INCREASED
[2019-05-05 01:09] LABS: POLYCHROMASIA 1+
[2019-05-05 03:41] VITALS: BP 119/44
--- NOTE | 2019-05-05 07:23 | NUR ---
I ASSUMED CARE OF THE BOARDED PATIENT AT 0700. SHE IS RESTING AND FLUIDS ARE INFUSING. WILL CONTINUE TO MONITOR.
--- NOTE | 2019-05-05 14:29 | NUR ---
PT FAMILY LEFT TO GET PT SOME ITEMS AND TOOK THE PTS CLOTHING HOME TO WASH THEM
[2019-05-05 17:41] VITALS: BP 120/48
--- NOTE | 2019-05-05 18:32 | NUR ---
vss, assumed care of pt from er, assessment performed, rn in er charted assessment findings, she is a&o4, incont of b/b, bedrest, on 3l nc, sr c pvcs on monitor. pt denies any pain at this time. call light in fall precautions in place.
[2019-05-05 20:00] VITALS: BP 112/55
[2019-05-06] VITALS: BP 112/54
[2019-05-06 04:00] VITALS: BP 112/54
--- NOTE | 2019-05-06 07:38 | NUR ---
PROGRESSING TOWARDS GOALS, DENIES PAIN OR DISCOMFORT, USING CALL LIGHT FOR NEEDS, INCONTINENT OF BOWEL AND BLADDER, PERIWICK IN USE PER PT REQUEST AND TO PROMOTE SKIN INTEGRITY, OXYGEN 2L PER NC, MONT[place]I PARAPROFESSIONAL COUGH, AFEBRILE, RESTING QUIETLY WITH EYES CLOSED OFF AND ON DURING NOC, NPO AFTER MIDNIGHT EXCEPT SIPS H20 WITH MEDS FOR SCHEDULED NUCLEAR STRESS TEST THIS AM. NO ADVERSE EFFECTS FROM IV ABT'S, NS 100CC/HR VIA INFUSION PUMP PER ORDER, NSR TRACING SAND SLINGER. CALL LIGHT IN REACH, BED REMAINS IN LOW AND LOCKED POSITON. SAFETY MAINTAINED.
[2019-05-06 09:09] VITALS: BP 126/61
--- NOTE | 2019-05-06 10:25 | CON ---
[address] [address] CONSULTATION Name: CYNTHIA FELDMAN Adrien Room: [address] IN .R.#: [id number] Admission: 05/05/19 Attend Phys: Skye Gonsalez Discharge: Date of : 44 Report #: [id number] THIS REPORT FOR: //name// CC: Skye Sheikh DATE OF SERVICE: 05/05/2019 INDICATION: Elevated troponin. HISTORY OF PRESENT ILLNESS: The patient is a 79-year-old white female with no history of coronary artery disease. She was seen in the Emergency Room with complaints of nausea, vomiting and febrile illness. In this setting, her initial two troponins were 0.11 and third troponin is less than 0.06. EKG shows sinus rhythm with left anterior fascicular block without acute ST-segment abnormality. She denies chest pain. She is not having shortness of breath. Her primary complaints are nausea, vomiting, weakness and fever. The patient was recently hospitalized with a femoral neck fracture, for which she had surgical repair. There is a report of possible rheumatic fever as a child. Subsequent echocardiograms have not shown any evidence of valvular heart disease. PAST MEDICAL HISTORY: 1. Hyperlipidemia. 2. Osteoporosis. 3. Asthma. 4. Osteoarthritis. 5. MDD. 6. Double mastectomy due to breast cancer. 7. Knee replacement, left knee. 8. Plate and screws in right leg remotely. 9. Left femoral neck fracture, 04/2019, status post surgical repair. ALLERGIES: DOXYCYCLINE. CURRENT MEDICATIONS: Tylenol p.r.n., albuterol inhaler q. 6 hours, Fosamax 70 mg weekly, Eliquis 2.5 mg b.i.d., aspirin 81 mg daily, Os-Aly 1 tablet daily, chlordiazepoxide 25 mg t.i.d., Flonase nasal spray 1 spray b.i.d., Lidoderm patch topically daily, Mucinex 1200 mg b.i.d., hydrocodone/acetaminophen 5/325 q. 3 hours p.r.n., ibuprofen 600 mg q. 6 hours p.r.n., meropenem 1 gram IV q. 8 hours, Singulair 10 mg daily, phenobarbital 30 mg t.i.d., Pravachol 40 mg at bedtime, vitamin 1 tablet daily, Effexor XR 37.5 mg daily, B12 injection monthly. SOCIAL HISTORY: The [place] [address] CONSULTATION Name: CYNTHIA FELDMAN Room: [address]#: [id number] Admission: 05/05/19 Attend Phys: Skye Gonsalez Discharge: Date of : 42 Report #: [id number] FAMILY HISTORY: Noncontributory. PHYSICAL EXAMINATION: VITAL SIGNS: Blood pressure 120/48, pulse 82 and regular. GENERAL: This is a pleasant elderly female, in no distress. Mood and affect appropriate. HEENT: Head normocephalic, atraumatic. Extraocular muscles intact. Mucous membranes are dry. NECK: Shows no jugular venous distention. There are no carotid bruits. CHEST: Reveals clear lung cloud. CARDIAC: Reveals a regular rhythm without gallop or murmur. ABDOMEN: Reveals normal bowel sounds. The abdomen is soft and nontender. EXTREMITIES: Shows no edema. Peripheral pulses 2+ and palpable. SKIN: Dry. IMPRESSION AND RECOMMENDATIONS: 1. Elevated troponin, possibly type 2 myocardial infarction due to strain from acute illness versus acute coronary syndrome. The patient does not have any symptoms to suggest acute coronary syndrome. I would be in favor of noninvasive stress testing for further evaluation, which will be arranged. 2. Hyperlipidemia. Continue current statin agent. 3. Acute febrile illness per hospitalist. <ELECTRONICALLY SIGNED> By: Harjit Raman MD, FACC 05/06/19 1025 1306 [id number] Raman MD, FACC /nt
[2019-05-06 11:30] VITALS: BP 115/53
--- NOTE | 2019-05-06 12:19 | CON ---
[address] [address] CONSULTATION Name: FELDMANCYNTHIA Adrien Room: [address] IN M.R.#: [id number] Admission: 05/05/19 Attend Phys: Skye Gonsalez Discharge: Date of : 44 Report #: [id number] THIS REPORT FOR: //name// CC: Skye Sheikh DATE OF SERVICE: 05/05/2019 INFECTIOUS DISEASE CONSULTATION ATTENDING PHYSICIAN: Dr. Mckeon. REASON FOR EVALUATION: Pneumonitis with recent hospitalization due to hip fracture, subsequent postoperative fever. HISTORY OF PRESENT ILLNESS: Chart reviewed, the patient examined. This is a 79-year-old, known to myself, who has got a history of recent left hip fracture, underwent hemiarthroplasty procedure. Postop course was complicated by fever. 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 She was discharged to a facility for rehab, ongoing parenteral therapy with meropenem based on susceptibilities. She has generally been doing well. This was confirmed by her family member. In fact, she was having a good day, developed fairly abrupt onset of generalized diaphoresis, some low-grade temperature elevations and did have some nausea. Of note, had previous nausea, emesis 2 days prior, which she attributed to perhaps food intolerance. On evaluation today, she is generally lucid, she is afebrile at this point. Of note, she is scheduled to have a cardiac stress test tomorrow due to increased troponin on initial evaluation. Her white count is notably elevated to 17.8 with primary neutrophilia. Influenza antigen was also negative. Lactic acid 1.5. She was empirically started on therapy with the meropenem. ALLERGIES: DOXYCYCLINE. CURRENT MEDICINES: Include azithromycin, atorvastatin, phenobarbital, meropenem, guaifenesin as needed, ibuprofen, aspirin, fluticasone, venlafaxine, montelukast, ipratropium/albuterol inhaler, did receive a single dose of ceftriaxone. PAST MEDICAL HISTORY: As described above, previous history of double mastectomy, previous left knee replacement, vitamin D deficiency, osteoarthritis, hyperlipidemia, osteoporosis, history of asthma. SOCIAL HISTORY: Former smoker. No ethanol or illicit drug use. FAMILY HISTORY: [place] [address] CONSULTATION Name: CYNTHIA FELDMAN Room: [address] IN [facility].#: [id number] Admission: 05/05/19 Attend Phys: Skye Gonsalez Discharge: Date of : 44 Report #: [id number] REVIEW OF SYSTEMS: Otherwise, unremarkable 10-point review of systems except noted above. Denies any significant respiratory distress at this point. No GI-related complaints. PHYSICAL EXAMINATION: GENERAL: She is alert, cooperative, vvxr-gy-obrttjqn distress. VITAL SIGNS: Temperature 97.5, pulse 80, respirations 23, blood pressure 120/48. SKIN: Warm, dry. She is not diaphoretic at this point. HEENT: Normocephalic. Extraocular muscles are intact. NECK: Supple. LUNGS: Somewhat diminished; few scattered crackles at the left base; otherwise, unremarkable. HEART: Regular. I do not appreciate a murmur. ABDOMEN: Soft, nontender and nondistended. There are no peritoneal signs. GENITOURINARY AND RECTAL: Deferred. LABORATORY DATA: PT of 10.8, INR 1.1. Lactic acid 1.5. Electrolytes: Sodium 137, potassium 4.0, chloride 101, bicarbonate 27, anion gap of 9, BUN and creatinine 19 and 1.0, glucose of 146. LFTs are unremarkable. Albumin of 2.6. Total protein 6.4. Estimated GFR of 54. Troponin level 0.11. Influenza antigen was negative. CBC: White count of 17.8, H and H 10.0 and 29.2, platelets of 592. Chest x-ray showed patchy infiltrates involving the left base; this was compared to 04/20, which had an increase. ASSESSMENT AND PLAN: Low-grade fevers, complicated by diaphoresis. There is a question of early pneumonitis. The patient actually has been on broad-spectrum antimicrobials for a complicated urinary tract infection. At this point, she does not look overtly toxic. Continue current approach. Go and check some additional diagnostic testing including pneumococcal antigen as well as surveillance for MRSA of the respiratory tract and see how she does clinically in the next 24-48 hours. <ELECTRONICALLY SIGNED> By: Jason Nunez MD 05/06/19 1219 1318 2215Joliss Nunez MD /nt
--- NOTE | 2019-05-06 12:28 | EKG ---
[place] [address] ELECTROCARDIOGRAM REPORT Name: CYNTHIA FELDMAN Room: [address] ADM IN M.R.#: [id number] Admission: 05/05/19 Attend Phys: Skye Gonsalez Discharge: Date of : 44 Report #: [id number] THIS REPORT FOR: //name// [facility] ED Test Date: 2019-05-05 Test Time: 00:05:21 Pat Name: CYNTHIAKARLA FELDMAN Department: Room: [facility] Gender: F Neurological Physiotherapist: : 1940 Requested By: Jose Luis Pritchett Order Number: [id number] MD: Abran Stuart Measurements Intervals [place]dock Rate: 108 P: 21 MO: 125 QRS: -25 QRSD: 104 T: 50 QT: 355 QTc: 476 Interpretive Statements Sinus tachycardia Atrial premature complex Low voltage, precordial leads Left ventricular hypertrophy Borderline prolonged QT interval Compared to ECG 04/17/2019 15:38:54 Atrial premature complex(es) now present Low QRS voltage now present Left ventricular hypertrophy now present Sinus rate has increased Electronically Signed On 05-06-2019 12:27:25 FRAME STRAIGHTENER by Abran Stuart [email or web address] <ELECTRONICALLY SIGNED> By: Abran Stuart MD, FAC 05/06/19 1227 0005 0005 Abran Stuart MD, FAC /EPI
--- NOTE | 2019-05-06 14:02 | NUR ---
MET WITH PT, KNOWN FROM PREVIOUS STAY. PT WENT TO [facility] ON IV ABX AFTER A FX AND REPAIR ON 04/26. SHE STATES SHE WAS ABLE TO AMBULATE WITH WALKER AND ASSIST THERE. PRIOR TO THAT STAY, PT LIVED AT HOME WITH SHERINER/ARIA. USED WALKER, CANE OR CRUTCHES AND HAS W/C AND BSC. PT DENIES HAVING HH BUT HAS BEEN TO SNF AT [facility] AND [place]. PT PREFERS TO RETURN HOME AT [place] IF ABLE. DTR CALLED AND WOULD LIKE A REHAB EVAL, DISCUSSED WITH DR KRUEGER. AWAIT THERAPY EVALS AND WILL DISCUSS FURTHER
--- NOTE | 2019-05-06 15:40 | NUR ---
VSS, ASSUMED CARE IN THE AM, ASSESSMENT PERFORMED AND CHARTED, FALL PRECAUTIONS IN PLACE AND CALL LIGHT IN REACH, PT IS A&O4 AND IS UP WITH ONE AND WALKER ON 2L NC, TRACING AFIB ON THE MONITOR, PT DENIES ANY PAIN AT THIE TIME HER GOAL IS TO SIT UP IN CHAIR AND IMPROVE BREATHING WILL FOLLOW WITH PLAN OF CARE.
[2019-05-06 17:14] VITALS: BP 135/60
--- NOTE | 2019-05-06 17:17 | CARDNUC ---
[place] [address] CARDIAC NUCLEAR IMAGING REPORT Name: CYNTHIA FELDMAN Adrien Room: [address] IN [facility]#: [id number] Admission: 05/05/19 Attend Phys: Skye falcon Sa Discharge: Date of : 44 Date of Service: 05/06/19 1716 Report #: [id number] THIS REPORT FOR: //name// ADDENDUM APPROVED REPORT Imaging Protocol: Rest Tc-99m/Stress Tc-99m 1 day Study performed: 05/05/2019 13:12:00 Indication: CAD Patient Location: In-Patient Stress Tech: Tonya Toussaint Stress Nurse: Nicol Simon RN NM Tech:SRINIVASA De León Ht: 5 ft 7 in Wt: 192 lbs BSA: 1.99 m2 HR: 90 bpm BP: 126/56 mmHg BMI: 30.06 Rhythm: NSR Medical History Medical History: CAD non obstructive, Hyperlipidemia Medications: apixaban, asa-81, atorvastatin Allergies: Doxycycline Cardiac Risk Factors: Age, Current Smoker, Hyperlipidemia Exercise History: Sedentary Resting Data Rest SPECT myocardial perfusion imaging was performed in supine position 30 minutes following the intravenous injection of 11.8 mCi of Tc-99m Sestamibi. Time of rest injection: 844 Date: 05/06/2019 The images were gated to evaluate regional wall motion and calculate left ventricular ejection fraction. Administration Route: IV Administration Site: Left AC Pharmacologic Stress Pharmacologic stress test was performed by injecting Regadenoson 0.4 mg IV push over 10-15 seconds immediately followed by the intravenous injection of 33.7 mCi of Tc-99m Sestamibi. Time of stress injection: 1035 Date: 05/06/2019 Administration Route: IV Administration Site: Left AC Gated Stress SPECT was performed 40 minutes [place] [address] CARDIAC NUCLEAR IMAGING REPORT Name: CYNTHIA FELDMAN Room: [address]#: [id number] Admission: 05/05/19 Attend Phys: Skye falcon Sa Discharge: Date of : 44 Date of Service: 05/06/19 1716 Report #: [id number] The images were gated to evaluate regional wall motion and calculate left ventricular ejection fraction. Stress only was performed in the Supine position. Stress Test Details Stress Test: Pharmacologic stress testing performed using 0.4 mg of regadenoson per 5 mL given IV over 10 seconds. Reason for pharmacologic stress test: physical limitation. HR Max Heart Rate (APMHR): 143 bpm Resting HR: 90 bpm Target HR (85% APMHR): 121 bpm Max HR Achieved: 102 bpm % of APMHR: 71 Recovery HR: 99 bpm BP Resting BP: 125/56 mmHg Max BP: 135/54 mmHg Recovery BP: 136/59 mmHg ECG Resting ECG: Sinus Rhythm Stress ECG: Sinus Rhythm ST Change: None Arrhythmia: None Recovery ECG: Sinus Rhythm Recovery ST Change: None Recovery Arrhythmia: None Clinical The patient tolerated Lexiscan infusion without significant cardiac symptoms. Nurse Comments pt unable to walk on treadmill d/t dementia and recent hip surgery Stress ECG Conclusion The baseline 12-lead EKG show sinus rhythm without significant ST segment or T wave abnormality. EKGs obtained during and post Lexiscan infusion show sinus rhythm with no significant ST segment or T wave changes when compared to baseline. There were no significant stress-induced arrhythmias. Study Quality Study: Good Artifact: [place] [address] CARDIAC NUCLEAR IMAGING REPORT Name: CYNTHIA FELDMAN Room: [address]#: [id number] Admission: 05/05/19 Attend Phys: Skye falcon Sa Discharge: Date of : 44 Date of Service: 05/06/19 1716 Report #: [id number] Study Data At rest, the left ventricular ejection fraction was 80%.. Post stress, the left ventricular ejection was 74%.. TID = 1.05. Perfusion Perfusion images obtained at rest and post Lexiscan stress show uniform uptake of the radioisotope throughout the myocardium without defect. Wall Motion Normal left ventricular wall motion. Nuclear Conclusion ECG Findings: negative for ischemia Clinical Findings: negative for ischemia Nuclear Findings: negative for ischemia Exercise Capacity: not assessed Left Ventricular Function: normal Risk Study: low Myocardial perfusion images show no defect to suggest infarct or ischemia. Left ventricular systolic function is normal on gated studies. This is a low risk study. <Conclusion> The baseline 12-lead EKG show sinus rhythm without significant ST segment or T wave abnormality. EKGs obtained during and post Lexiscan infusion show sinus rhythm with no significant ST segment or T wave changes when compared to baseline. There were no significant stress-induced arrhythmias. <ELECTRONICALLY SIGNED> By: Harjit Raman MD, FACC 05/06/19 1716 15 1716 Harjit Raman MD, FACC /INF
[2019-05-06 19:40] VITALS: BP 114/57
[2019-05-07] VITALS (7 sets, daily range): BP systolic 111–134; BP diastolic 54–77
[2019-05-07 00:06] LABS: URINE BILIRUBIN NEGATIVE (Negative); URINE BLOOD NEGATIVE (Negative); URINE CLARITY CLEAR; URINE COLOR YELLOW; URINE GLUCOSE-RANDOM NEGATIVE (Negative); URINE KETONES NEGATIVE (Negative); URINE LEUKOCYTES-REFLEX NEGATIVE (Negative); URINE NITRITE-REFLEX NEGATIVE (Negative); URINE PROTEIN TRACE (Negative); URINE SPECIFIC GRAVITY 1.015 (1.005-1.030); URINE UROBILINOGEN 0.2 E.U./dl (0.2-1.0)
--- NOTE | 2019-05-07 01:16 | NUR ---
ASSUMED CARE OF PT AT 1900. PT IS ALERT AND ORIENTED. VSS. PERRLA. NO COMPLAINTS OF PAIN. PT IS ON 2 LITERS OF O2. PT IS IN SINUS RYTHM ON THE TELEMETRY. PT IS RESTING COMFORTABLY IN BED. RESPIRATIONS ARE EVEN AND NONLABORED. WILL CONTINUE TO MONIIOR PT.
--- NOTE | 2019-05-07 09:31 | NUR ---
WOUND CARE NOTE: LATE ENTRY. PATIENT SEEN 05/06/18 AROUND 1600. PATIENT PRESENTS WITH PARTIAL THICKNESS BREAKDOWN TO HER COCCYX. APPROXIMATELY 0.3X0.6X0.1. STAGE 2 PRESSURE ULCER. NEXT TO THIS SITE, THERE IS A WHITE KERATOSIS TYPE LESION. PATIENT STATES SHE HAS SEEN A PHYSICIAN FOR THIS AND THAT IT IS JUST A LESION LIKE ON HER FACE. GAVE PATIENT'S RN Z-GUARD BARRIER OINTMENT FOR SITE. ALSO HEALING RUPTURED BLISTER TO THE MEDIAL ASPECT OF HER LEFT THIGH. PATIENT BELIEVES IT IS FROM THE ABDUCTOR PILLOW WHEN SHE HAD HER HIP DONE. THIS IS HEALING, CAN PLACE BARRIER OINTMENT/Z-GUARD IF SO DESIRED. EDUCATED PATIENT TO SHIFT WEIGHT WHEN IN CHAIR, COMMUNICATED UNDERSTANDING. RECOMMEND WAFFLE CUSHION WHEN IN CHAIR. Z-GUARD BARRIER OINTMENT BID AND PRN TO COCCYX WOUND
--- NOTE | 2019-05-07 14:01 | NUR ---
Nutrition: Pt admitted with PNA, viral syndrome. Wt: 184#. Assessed for stage II pressure ulcer on coccyx. Regular diet. Carlos BID ordered. MVI and B12 ordered. Labs: BG 146, alb 2.6, prealb 10.5. No further nutrition interventions. Mild risk. Increased nutrient needs R/T wound healing AEB ulcer on coccyx. GOALS: tight BG control, Carlos BID, >75% of meals consumed. F/u per protocol.
--- NOTE | 2019-05-07 14:17 | NUR ---
CONTINUE TO FOLLOW, MET WITH PT AND SPOKE WITH AARON/ARIA OVER THE PHONE. PT STILL WALKING ONLY SHORT DISTANCE WITH ASSIST AND WALKER. PT WANTS TO RETURN HOME AT [place]. DISCUSSED POSSIBLE REHAB AND SHE SEEMED OPEN TO IT BUT WANTS TO GO HOME ALSO. CALL TO DTR, SHE WOULD PREFER PT TO GO TO REHAB IF OPTION BUT REALIZES PT WANTS HOME WITH HH. DISCUSSED HH OPTIONS AND DTR AND PT HAD NO PREFERENCE. AWAITING TO SEE HOW SHE DOES AGAIN WITH THERAPY AND REHAB DECISION. DTR STATED SHE WAS READYING THE HOME IN CASE PT DOES GET TO COME HOME. IF HOME WITH HH, CONTACT [facility] FOR REFERRAL. [facility] [phone] FAX [phone]
--- NOTE | 2019-05-07 16:59 | NUR ---
ASSUMED PT CARE REPORT RECEIVED FROM NURSE. PT IS AOX4. ON 2 LNC. O2 SATURATION IS 90%. LUNG SOUND CLEAR. NO COMPLAINT. DENIES APIN. PUREWICK CATHETER IN PLACE. PT OUT OF BED TO CHAIR WITH NURSE ASSISTANCE. PO MEDICINE GIVEN ORDERED. PT HAS GOOD APPETITE. PIPED POCKET MACHINE OPERATOR VISITED PT ON DISCHARGE PLANNING. PT STATES THAT SHE WANTS TO GO HOME WITH HOME HEALTH. PHYSICAL THERAPIST WORKED IN PT WHO WALKED IN HALLWAY INDEPENDENTLY WITH A WALKER. OVERNIGHT OXYMETRY ORDERED. WILL COMMUNICATE TO RESPIRATORY THERAPIST. CALL LIGHT AT REACH. FALL PRECAUTION IN PLACE. WILL CONTINUE TO MONITOR PATIENT
[2019-05-08] VITALS: BP 110/60
--- NOTE | 2019-05-08 03:48 | NUR ---
RECEIVED REPORT AND ASSUMED CARE AT 1900. VSS. CARDIAC MONITORING IN PLACE. PT DENIES COMPLAINTS OF PAIN, ASSESSMENT COMPLETED CHARTED. DISCUSSED PLAN OF CARE WITH PT, VERBALIZED UNDERSTANDING. BED LOCKED IN LOWEST POSITION, CALL LIGHT WIHTIN REACH, BED ALARM ON.
[2019-05-08 04:00] VITALS: BP 113/57
[2019-05-08 08:00] VITALS: BP 119/77
[2019-05-08] MEDS ORDERED: CEFDINIR300 MG PO (09:32)
[2019-05-08] MEDS ORDERED: ASA81BEC PO (12:09)
--- NOTE | 2019-05-08 12:36 | NUR ---
VSS.FIELD CARE MANAGER IN PLACE.PT ON ROOM AIR.NO C/O PAIN.PT OK FOR DISCHARGE.DISCHARGE PAPERWORK COMPLETED AND GIVEN TO PT.SCRIPT GIVEN WITH EDUCATION.REST AND EXERCISE COMPLETED BY RT NO OXYGEN NEEDED.PICC LINE REMOVED RIGHT UPPER ARM.HEART MONITOR REMOVED AND RETURNED TO THE NURSING STATION.ALL PERSONAL BELONGINGS PACKED AND TAKEN WITH PT.PT WHEELED OUT BY NURSING STAFF TO PERSONAL VEHICLE.
--- NOTE | 2019-05-10 09:31 | NUR ---
FAXED FACE SHEET AND DISCHARGE SUMMARY TO [facility] [phone]. [facility] CALLED TO REQUEST, SHE HAD NOT RECEIVED THEM ON .
== END 2019-05-08 12:55 | disposition home health service (06) | DRG 391 ==
LOC: M.ERS 23:21 → M.2W 05-05 00:48 → M.TBA-ER 05-05 00:48 → M.2W 05-05 17:41
PROVIDERS: Family Medicine; Specialist; ADMIT Family Medicine
PROC: 05HY33Z Insertion of Infusion Device into Upper Vein, Percutaneous Approach (ICD-10-PCS; principal; 2019-05-05)
DX: A08.4 Viral intestinal infection, unspecified (principal); J96.01 Acute respiratory failure with hypoxia; I21.A1 Myocardial infarction type 2; N39.0 Urinary tract infection, site not specified; J98.11 Atelectasis; R65.10 Systemic inflammatory response syndrome (SIRS) of non-infectious origin without acute organ dysfunction; Z96.652 Presence of left artificial knee joint; E55.9 Vitamin D deficiency, unspecified; M19.90 Unspecified osteoarthritis, unspecified site; E78.5 Hyperlipidemia, unspecified; F32.9 Major depressive disorder, single episode, unspecified; M81.0 Age-related osteoporosis without current pathological fracture; J45.909 Unspecified asthma, uncomplicated; Z96.642 Presence of left artificial hip joint; B96.5 Pseudomonas (aeruginosa) (mallei) (pseudomallei) as the cause of diseases classified elsewhere; R79.89 Other specified abnormal findings of blood chemistry; K27.9 Peptic ulcer, site unspecified, unspecified as acute or chronic, without hemorrhage or perforation; Z90.10 Acquired absence of unspecified breast and nipple; Z79.82 Long term (current) use of aspirin; Z79.891 Long term (current) use of opiate analgesic; Z79.899 Other long term (current) drug therapy; Z88.8 Allergy status to other drugs, medicaments and biological substances; Z86.73 Personal history of transient ischemic attack (TIA), and cerebral infarction without residual deficits; Z79.2 Long term (current) use of antibiotics; Z87.891 Personal history of nicotine dependence

== ENCOUNTER → 2019-06-22 | Outpatient (CLI) | payer OTHER ==
[~2019-06-22] MED LIST changes: +ASA81BEC PO; +CEFDINIR300 MG PO
== END ==
LOC: M.RAD 12:50
DX: J98.11 Atelectasis (principal); J18.9 Pneumonia, unspecified organism; M47.814 Spondylosis without myelopathy or radiculopathy, thoracic region